=== PATIENT | female | born 1985 | race American Indian/Alaskan Native ===

== ENCOUNTER 2017-09-23 06:03 | Emergency (ER) | payer SELFPAY ==
[2017-09-23 06:11] VITALS: BP 135/80
[2017-09-23 07:06] LABS: Bilirubin,Urine NEG (Negative); Blood,Urine NEG (Negative); Ketones,Urine NEG (Negative); Leukocyte Esterase,Urine NEG (Negative); Mucus,Urine FEW /HPF; Nitrite,Urine NEG (Negative); Protein,Urine <15 mg/dL mg/dL (Negative); Urobilinogen,Urine < 2.0 mg/dL (<2.0); WBC,Urine < 1.0 /HPF (0.0-6.0)
[2017-09-23 07:15] LABS: Basophils % (Auto) 0.7 % (0.0-1.8); Eosinophils % (Auto) 3.3 % (0.0-4.3); Hemoglobin 12.3 gm/dl (10.1-14.3); Mean Corpuscular HGB Conc 32 % (30-34); Mean Corpuscular Hemoglobin 28 pg (28-32); Mean Corpuscular Volume 85 fl (79-97); Platelet Count 190 K/mm3 (140-440); Red Blood Count 4.49 M/mm3 (3.65-5.03); Red Cell Distribution Width 15.5 % (13.2-15.2); White Blood Count 4.3 K/mm3 (4.5-11.0)
[2017-09-23 07:35] LABS: Alanine Aminotransferase 24 units/L (7-56); Albumin/Globulin Ratio 1.1 %; Alkaline Phosphatase 44 units/L (35-129); Anion Gap 14 mmol/L; BUN/Creatinine Ratio 23; Blood Urea Nitrogen 14 mg/dL (7-17); Calcium 8.6 mg/dL (8.4-10.2); Carbon Dioxide 26 mmol/L (22-30); Chloride 102.9 mmol/L (98-107); Glucose 100 mg/dL (65-100); Lipase 48 units/L (13-60); Sodium 139 mmol/L (137-145); Total Protein 7.5 g/dL (6.3-8.2)
[2017-09-23] MEDS ORDERED: TYLENOL PO ONE (11:15)
[2017-09-23] MEDS ORDERED: MOTRIN PO ONE (11:15)
--- NOTE | 2017-09-23 11:15 | Emergency Department Report ---
ED General Adult HPI - General Chief complaint: Abdominal Pain Stated complaint: BACK,STOMACH PAIN Time Seen by Provider: 09/23/17 08:35 Source: patient Mode of arrival: Ambulatory Limitations: No Limitations - History of Present Illness Initial comments: Patient is a 32-year-old female no significant past medical history who presents with lower abdominal pain. Patient states that her lower bone pain has been going on for the last 8 hours. Patient denies having any nausea or vomiting or any shortness of breath. She states that she was concerned because she missed her period. She states that she had her tubes tied and she is concerned that she is . Patient's bowel pain as a 4 out of 10 as an achy type of pain nothing makes it better or worse. Severity scale (0 -10): 0 - Related Data Previous Rx's Medication Instructions Recorded Last Taken Type Ibuprofen [Motrin] 600 mg PO Q8H PRN #40 tablet 11/28/15 Unknown Rx traMADol [Ultram] 50 mg PO Q6HR PRN #20 tablet 11/28/15 Unknown Rx Naproxen 250 mg PO BID #20 tablet 09/23/17 Unknown Rx Allergies Allergy/AdvReac Type Severity Reaction Status Date / Time latex Allergy Itching Verified 11/28/15 02:21 ED Review of Systems ROS: Stated complaint: BACK,STOMACH PAIN Other details as noted in HPI Constitutional: denies: chills, fever Eyes: denies: eye pain, eye discharge, vision change ENT: denies: ear pain, throat pain Respiratory: denies: cough, shortness of breath, wheezing Cardiovascular: denies: chest pain, palpitations Endocrine: no symptoms reported Gastrointestinal: abdominal pain. denies: nausea, diarrhea Genitourinary: denies: urgency, dysuria, discharge Musculoskeletal: denies: back pain, joint swelling, arthralgia Skin: denies: rash, lesions Neurological: denies: headache, weakness, paresthesias Psychiatric: denies: anxiety, depression Hematological/Lymphatic: denies: easy bleeding, easy bruising ED Past Medical Hx - Past Medical History Hx Asthma: Yes - Surgical History Additional Surgical History: x4 - Social History Smoking Status: Never Smoker - Medications Home Medications: Home Medications Medication Instructions Recorded Confirmed Last Taken Type Ibuprofen [Motrin] 600 mg PO Q8H PRN #40 tablet 11/28/15 Unknown Rx traMADol [Ultram] 50 mg PO Q6HR PRN #20 tablet 11/28/15 Unknown Rx Naproxen 250 mg PO BID #20 tablet 09/23/17 Unknown Rx ED Physical Exam - General Limitations: No Limitations General appearance: alert, in no apparent distress - Head Head exam: Present: atraumatic, normocephalic - Eye Eye exam: Present: normal appearance - ENT ENT exam: Present: mucous membranes moist - Neck Neck exam: Present: normal inspection - Respiratory Respiratory exam: Present: normal lung sounds bilaterally. Absent: respiratory distress - Cardiovascular Cardiovascular Exam: Present: regular rate, normal rhythm. Absent: systolic murmur, diastolic murmur, rubs, gallop - GI/Abdominal GI/Abdominal exam: Present: soft, normal bowel sounds - Extremities Exam Extremities exam: Present: normal inspection - Back Exam Back exam: Present: normal inspection - Neurological Exam Neurological exam: Present: alert, oriented X3 - Psychiatric Psychiatric exam: Present: normal affect, normal mood - Skin Skin exam: Present: warm, dry, intact, normal color. Absent: rash ED Course Vital Signs 09/23/17 09/23/17 06:08 06:15 Temperature 98.1 F 98.1 F Pulse Rate 76 76 Respiratory 18 18 Rate Blood Pressure 135/80 135/80 O2 Sat by Pulse 100 100 Oximetry ED Medical Decision Making - Lab Data Result diagrams: 09/23/17 06:55 09/23/17 06:55 Lab Results 09/23/17 09/23/17 09/23/17 Range/Units 06:24 06:55 06:55 WBC 4.3 L (4.5-11.0) K/mm3 RBC 4.49 (3.65-5.03) M/mm3 Hgb 12.3 (10.1-14.3) gm/dl Hct 38.0 (30.3-42.9) % MCV 85 (79-97) fl MCH 28 (28-32) pg MCHC 32 (30-34) % RDW 15.5 H (13.2-15.2) % Plt Count 190 (140-440) K/mm3 Lymph % (Auto) 41.1 H (13.4-35.0) % [place] % (Auto) 11.5 H (0.0-7.3) % Eos % (Auto) 3.3 (0.0-4.3) % Baso % (Auto) 0.7 (0.0-1.8) % Lymph # 1.7 (1.2-5.4) K/mm3 [place] # 0.5 (0.0-0.8) K/mm3 Eos # 0.1 (0.0-0.4) K/mm3 Baso # 0.0 (0.0-0.1) K/mm3 Seg Neutrophils % 43.4 (40.0-70.0) % Seg Neutrophils # 1.8 (1.8-7.7) K/mm3 Sodium 139 (137-145) mmol/L Potassium 4.0 (3.6-5.0) mmol/L Chloride 102.9 (98-107) mmol/L Carbon Dioxide 26 (22-30) mmol/L Anion Gap 14 mmol/L BUN 14 (7-17) mg/dL Creatinine 0.6 L (0.7-1.2) mg/dL Estimated GFR > 60 ml/min BUN/Creatinine Ratio 23 % Glucose 100 (65-100) mg/dL Calcium 8.6 (8.4-10.2) mg/dL Total Bilirubin 0.20 (0.1-1.2) mg/dL AST 20 (5-40) units/L ALT 24 (7-56) units/L Alkaline Phosphatase 44 (35-129) units/L Total Protein 7.5 (6.3-8.2) g/dL Albumin 4.0 (3.9-5) g/dL Albumin/Globulin Ratio 1.1 % Lipase 48 (13-60) units/L HCG, Qual (Negative) Urine Color Yellow (Yellow) Urine Turbidity Clear (Clear) Urine pH 5.0 (5.0-7.0) Ur Specific [place] 1.018 (1.003-1.030) Urine Protein <15 mg/dl (Negative) mg/dL Urine Glucose (UA) Neg (Negative) mg/dL Urine Ketones Neg (Negative) mg/dL Urine Blood Neg (Negative) Urine Nitrite Neg (Negative) Urine Bilirubin Neg (Negative) Urine Urobilinogen < 2.0 (<2.0) mg/dL Ur Leukocyte Esterase Neg (Negative) Urine WBC (Auto) < 1.0 (0.0-6.0) /HPF Urine RBC (Auto) 1.0 (0.0-6.0) /HPF U Epithel Cells (Auto) < 1.0 (0-13.0) /HPF Urine Mucus Few /HPF 09/23/17 Range/Units 06:55 WBC (4.5-11.0) K/mm3 RBC (3.65-5.03) M/mm3 Hgb (10.1-14.3) gm/dl Hct (30.3-42.9) % MCV (79-97) fl MCH (28-32) pg MCHC (30-34) % RDW (13.2-15.2) % Plt Count (140-440) K/mm3 Lymph % (Auto) (13.4-35.0) % [place] % (Auto) (0.0-7.3) % Eos % (Auto) (0.0-4.3) % Baso % (Auto) (0.0-1.8) % Lymph # (1.2-5.4) K/mm3 [place] # (0.0-0.8) K/mm3 Eos # (0.0-0.4) K/mm3 Baso # (0.0-0.1) K/mm3 Seg Neutrophils % (40.0-70.0) % Seg Neutrophils # (1.8-7.7) K/mm3 Sodium (137-145) mmol/L Potassium (3.6-5.0) mmol/L Chloride (98-107) mmol/L Carbon Dioxide (22-30) mmol/L Anion Gap mmol/L BUN (7-17) mg/dL Creatinine (0.7-1.2) mg/dL Estimated GFR ml/min BUN/Creatinine Ratio % Glucose (65-100) mg/dL Calcium (8.4-10.2) mg/dL Total Bilirubin (0.1-1.2) mg/dL AST (5-40) units/L ALT (7-56) units/L Alkaline Phosphatase (35-129) units/L Total Protein (6.3-8.2) g/dL Albumin (3.9-5) g/dL Albumin/Globulin Ratio % Lipase (13-60) units/L HCG, Qual Negative (Negative) Urine Color (Yellow) Urine Turbidity (Clear) Urine pH (5.0-7.0) Ur Specific [place] (1.003-1.030) Urine Protein (Negative) mg/dL Urine Glucose (UA) (Negative) mg/dL Urine Ketones (Negative) mg/dL Urine Blood (Negative) Urine Nitrite (Negative) Urine Bilirubin (Negative) Urine Urobilinogen (<2.0) mg/dL Ur Leukocyte Esterase (Negative) Urine WBC (Auto) (0.0-6.0) /HPF Urine RBC (Auto) (0.0-6.0) /HPF U Epithel Cells (Auto) (0-13.0) /HPF Urine Mucus /HPF - Medical Decision Making Chief medical diagnosis: abdominal muscle wall pain differential medical diagnosis: UTI, , hypokalemic, hyperkalemia I will get CBC, CMP, acetaminophen, hCG test and urinalysis patient's laboratory findings are unremarkable I will send patient home with oral acetaminophen and ibuprofen discussed plan with patient and patient agrees to plan. Additional verbal discharge instructions were given. Patient most likely has abdominal pain with no known cause patient's abdominal pain has resolved I will send patient home with Naprosyn. Critical care attestation.: If time is entered above; I have spent that time in minutes in the direct care of this critically ill patient, excluding procedure time. ED Disposition Clinical Impression: Lower abdominal pain, Missed menses Disposition: DC-01 TO HOME OR SELFCARE Is pt being admited?: No Does the pt Need Aspirin: No Condition: Stable Instructions: Abdominal Pain (ED), Menstruation (ED) Prescriptions: Naproxen 250 mg PO BID #20 tablet Referrals: OLIVIA ORTIZ MD [Primary Care Provider] - 3-5 Days
== END 2017-09-23 12:02 | disposition home or self-care (01) ==
LOC: ED 06:03
DX: R10.30 Lower abdominal pain, unspecified (principal); Z91.040 Latex allergy status
CPT/HCPCS: 36415; 80053; 81001; 83690; 84703; 85025; 99283

== ENCOUNTER 2018-02-28 06:46 | Emergency (ER) | payer OTHER ==
--- NOTE | 2018-02-28 07:56 | XRay Report ---
FINAL REPORT PROCEDURE: XR TOE(S) 2+V RT TECHNIQUE: RIGHT 1st toe radiographs, including AP, oblique and lateral views. HISTORY: right great toe swollen and painful COMPARISON: No prior studies are available for comparison. FINDINGS: Fracture(s) and/or Dislocation(s): None. Joint space(s): There is mild degenerative arthrosis of the 1st metatarsophalangeal joint. Soft tissues: There is soft tissue swelling of the 1st digit. Bone mineralization: Normal. Foreign bodies: None. IMPRESSION: There is no fracture or malalignment. There is mild degenerative arthrosis of the 1st metatarsophalangeal joint. There is soft tissue swelling of the 1st digit.
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
[2018-02-28] MEDS ORDERED: DECADRON IM ONE (08:31)
[2018-02-28 08:53] VITALS: BP 122/82
== END 2018-02-28 08:54 | disposition home or self-care (01) ==
LOC: ED 06:46
DX: M19.071 Primary osteoarthritis, right ankle and foot (principal); Z91.040 Latex allergy status
CPT/HCPCS: 73660; 99283; J1100